=== PATIENT | female | born 1985 | race Hispanic/Latino ===

== ENCOUNTER 2023-04-22 11:41 | Emergency (ER) | payer OTHER ==
[~2023-04-22] VITALS: Ht 154.9 cm; Wt 59.0 kg
[2023-04-22] MEDS: 0.9%NACL 1000ML 1,000 ML IV ONE (12:41)
[2023-04-22] MEDS: KETOROLAC 30MG VIAL (30MG/ML) IVP ONE (12:41)
[2023-04-22 12:45] LABS: BASOPHILS # (AUTO) 0.07 K/uL (0.00-0.20); BASOPHILS % (AUTO) 0.5 % (0.0-5.0); EOSINOPHILS # (AUTO) 0.09 K/uL (0.00-0.70); EOSINOPHILS % (AUTO) 0.7 % (0.0-8.0); HEMATOCRIT 26.6 % (36-48); IMMATURE GRANULOCYTE ABSOLUTE 0.05 K/uL (0-1); LYMPHOCYTES # (AUTO) 1.6 K/uL (1.0-4.8); LYMPHOCYTES % (AUTO) 12.1 % (21.0-51.0); MEAN CORPUSCULAR HEMOGLOBIN 15.5 pg (27.0-33.0); MEAN CORPUSCULAR HGB CONC 25.9 g/dL (32.0-36.0); MEAN CORPUSCULAR VOLUME 59.8 fL (79-99); MONOCYTES # (AUTO) 0.8 K/uL (0.1-1.0); MONOCYTES % (AUTO) 5.6 % (3.0-13.0); NEUTROPHILS # (AUTO) 10.7 K/uL (1.8-7.7); NEUTROPHILS % (AUTO) 80.7 % (40.0-77.0); PLATELET COUNT (AUTO) 365 K/uL (130-400); RED BLOOD CELL COUNT(AUTO) 4.45 MIL/uL (4.00-5.50); RED CELL DISTRIBUTION WIDTH 21.2 % (11.0-15.5); WHITE BLOOD COUNT (AUTO) 13.3 K/uL (4.8-10.8)
[2023-04-22 12:57] LABS: CREATININE 0.6 mg/dL (0.5-1.5); POTASSIUM 3.8 mmol/L (3.5-5.1)
[2023-04-22 13:02] LABS: BILIRUBIN,TOTAL 0.5 mg/dL (0.2-1.0)
[2023-04-22 15:29] LABS: APPEARANCE,URINE CLEAR (CLEAR); BILIRUBIN,URINE NEGATIVE (NEGATIVE); COLOR,URINE LIGHT-YELLOW (YELLOW); GLUCOSE, URINE (UA) NEGATIVE (NEGATIVE); KETONES,URINE NEGATIVE (NEGATIVE); LEUKOCYTE ESTERASE ,URINE NEGATIVE Leu/uL (NEGATIVE); NITRATE,URINE NEGATIVE (NEGATIVE); OCCULT BLOOD,URINE LARGE (NEGATIVE); PROTEIN,URINE NEGATIVE (NEGATIVE); UROBILINOGEN,URINE 0.2 mg/dL (0.2-1.0)
[2023-04-22 15:36] LABS: ADD UA MICROSCOPIC YES
[2023-04-22 15:37] LABS: MUCUS,URINE RARE LPF (None Seen); RBC,URINE TNTC /HPF (0-1); SQUAMOUS EPITHELIAL CELL,UR RARE /HPF (0-2)
[2023-04-22] MEDS ORDERED: MEDR10TA PO (21:52)
[2023-04-22] MEDS ORDERED: NAPR-1023 PO (21:52)
[2023-04-22 23:59] VITALS: BP 106/58; PULSE 70; RESP 19; O2SAT 98
== END 2023-04-23 00:07 | disposition home or self-care (01) ==
LOC: EDH 11:41
DX: D25.9 Leiomyoma of uterus, unspecified (principal); D64.9 Anemia, unspecified; Z98.890 Other specified postprocedural states
CPT/HCPCS: 99291; 36430; 96374; 76856; 96361; 80053; 84703; 83690; 85025; 85014; 85018; 86850; 86900; 86901; 86923; 81001; 81025; 36415; P9016; J7030; J1885

== ENCOUNTER 2023-05-17 16:09 | Emergency (ER) | payer BC, OTHER ==
[~2023-05-17] VITALS: Ht 154.9 cm; Wt 59.0 kg
[~2023-05-17 16:09] MED LIST: MEDR10TA PO; NAPR-1023 PO
[2023-05-17 16:54] LABS: HEMATOCRIT 30.2 % (36-48); MEAN CORPUSCULAR HEMOGLOBIN 18.2 pg (27.0-33.0); MEAN CORPUSCULAR HGB CONC 27.8 g/dL (32.0-36.0); MEAN CORPUSCULAR VOLUME 65.4 fL (79-99); PLATELET COUNT (AUTO) 458 K/uL (130-400); RED BLOOD CELL COUNT(AUTO) 4.62 MIL/uL (4.00-5.50); RED CELL DISTRIBUTION WIDTH 27.1 % (11.0-15.5); WHITE BLOOD COUNT (AUTO) 12.6 K/uL (4.8-10.8)
[2023-05-17 17:04] LABS: CREATININE 0.7 mg/dL (0.5-1.0); POTASSIUM 3.3 mmol/L (3.5-5.1)
[2023-05-17 17:06] LABS: APPEARANCE,URINE TURBID (CLEAR); BILIRUBIN,URINE SMALL mg/dL (NEGATIVE); GLUCOSE, URINE (UA) 100 mg/dL (NEGATIVE); KETONES,URINE 15 mg/dL (NEGATIVE); LEUKOCYTE ESTERASE ,URINE MODERATE Leu/uL (NEGATIVE); NITRATE,URINE POSITIVE (NEGATIVE); OCCULT BLOOD,URINE LARGE (NEGATIVE); PH,URINE 6.5 (5.0-8.0); PROTEIN,URINE >=300 mg/dL (NEGATIVE)
[2023-05-17 17:08] LABS: ADD UA MICROSCOPIC YES; COLOR,URINE RED (YELLOW)
[2023-05-17 17:12] LABS: RBC,URINE TNTC /HPF (0-1)
[2023-05-17 17:15] LABS: BACTERIA,URINE Few /HPF (None Seen); WBC,URINE 0-1 /HPF (0-1)
[2023-05-17] MEDS ORDERED: MACR100 PO (19:28)
[2023-05-17 20:05] VITALS: BP 101/62; PULSE 74; RESP 18; O2SAT 97
== END 2023-05-17 20:15 | disposition home or self-care (01) ==
LOC: EDH 16:09
DX: N92.0 Excessive and frequent menstruation with regular cycle (principal); D64.9 Anemia, unspecified; Z79.899 Other long term (current) drug therapy; Z98.890 Other specified postprocedural states
CPT/HCPCS: 36415; 80048; 81001; 84703; 85027; 87077; 87088; 87186